=== PATIENT | male | born 1975 | race Hispanic/Latino ===

== ENCOUNTER 2018-12-31 19:17 | Emergency (ER) | payer OTHER ==
[2018-12-31] MEDS ORDERED: NA CHLORIDE 0.9% 1,000 ML ONE (20:20)
[2018-12-31 20:24] LABS: Absolute Lymphocytes (CBC) 0.7 K/uL (0.7-4.9); Absolute Monocytes 0.6 K/uL (0.1-1.3); Absolute Neutrophil 3.4 K/uL (1.8-8.0); Basophils % 0.3 % (0-1.3); Eosinophils % 0.5 % (0-4.4); Hematocrit 40.7 % (39.6-49.0); Lymphocytes % 14.6 % (15.3-44.8); MPV 8.8 fL (7.6-11.3); Monocytes % 12.8 % (3.3-12.3); RBC Red Blood Cell Count 4.74 M/uL (4.33-5.43)
[2018-12-31 20:42] LABS: Albumin 3.9 g/dL (3.4-5.0); Bilirubin Total 0.2 mg/dL (0.2-1.0); Potassium 3.7 mmol/L (3.5-5.1); Protein, Total 7.3 g/dL (6.4-8.2)
[2018-12-31] MEDS ORDERED: ACETAMINOPHEN 500 MG TAB ONE (20:53)
--- NOTE | 2018-12-31 21:18 | EDPHYS ---
Physician Documentation [facility] Name: Hank Crane Age: 43 yrs Sex: Male : 1975 Arrival Date: 12/31/2018 Time: 19:19 Bed 28 Private MD: ED Physician Daniel Carpenter HPI: 12/31 19:52 This 43 yrs old Male presents to ER via Ambulatory with complaints of Cough, jmm Dizziness, Fever. 19:52 The patient or guardian reports cough. Onset: The symptoms/episode began/occurred jmm gradually, 1 day(s) ago. This is a 43 year old male with no chronic medical conditions that presents to the ED with complaints of fever, cough, congestion, headache, beginning 1 day ago. patient states he was diagnosed with influenza. Patient is currently on tamiflu. Patient states his developed symptoms today. . Historical: - Allergies: 19:49 No Known Allergies; rv - PMHx: 19:49 None; rv - PSHx: 19:49 Appendectomy; rv - Immunization history:: Adult Immunizations up to date. - Social history:: Smoking status: Patient/guardian denies using tobacco, the patient reports quitting approximately 10 years ago. - Ebola Screening: : Patient negative for fever greater than or equal to 101.5 degrees Fahrenheit, and additional compatible Ebola Virus Disease symptoms Patient denies exposure to infectious person Patient denies travel to an Ebola-affected area in the 21 days before illness onset. ROS: 19:52 Eyes: Negative for injury, pain, redness, and discharge, ENT: Negative for injury, jmm pain, and discharge, Cardiovascular: Negative for chest pain, palpitations, and edema. 19:52 Constitutional: Positive for body aches, fever. 19:52 Respiratory: Positive for cough. 19:52 Neuro: Positive for headache. 19:52 All other systems are negative. Exam: 19:52 Constitutional: This is a well developed, well nourished patient who is awake, alert, jmm and in no acute distress. Head/Face: atraumatic. Eyes: EOMI, no conjunctival erythema appreciated ENT: Moist Mucus Membranes Neck: Trachea midline, Supple Cardiovascular: Regular rate and rhythm. No edema appreciated Respiratory: Normal respirations, no respiratory distress appreciated Abdomen/GI: Non distended, soft Back: Normal ROM Skin: General appearance color normal MS/ Extremity: Moves all extremities, no obvious deformities appreciated, no edema noted to the lower extremities Neuro: Awake and alert, normal gait Psych: Behavior is normal, Mood is normal, Patient is cooperative and pleasant 19:52 Respiratory: the patient does not display signs of respiratory distress, Respirations: normal, Breath sounds: are clear throughout. 19:52 Psych: Behavior/mood is pleasant, cooperative. Vital Signs: 19:49 BP 137 / 93; Pulse 91; Resp 22; Temp 99.4; Pulse Ox 100% on R/A; Weight 102.06 kg (R); rv 21:37 BP 147 / 93; Pulse 87; Resp 17; Pulse Ox 99% on R/A; rv MDM: 19:52 Patient medically screened. [facility] 21:16 Data reviewed: vital signs, nurses notes. Counseling: I had a detailed discussion with [facility] the patient and/or guardian regarding: the historical points, exam findings, and any diagnostic results supporting the discharge/admit diagnosis, lab results, the need for outpatient follow up, to return to the emergency department if symptoms worsen or persist or if there are any questions or concerns that arise at home. ED course: Patient is alert and non toxic in appearance in the ED. Patient's neck is supple. patient advised to follow up with pcp. patient given return precaution. no signs resp distress in the ED. . 12/31 19:56 Order name: CBC with Diff; Complete Time: 20:33 [facility] 12/31 19:56 Order name: CMP; Complete Time: 20:54 [facility] 12/31 19:56 Order name: Flu; Complete Time: 21:16 [facility] 12/31 19:56 Order name: Saline Lock; Complete Time: 20:45 [facility] Administered Medications: 20:15 Drug: NS 0.9% 1000 ml Route: IV; Rate: 1 bolus; Site: left antecubital; rv 20:40 Drug: Tylenol 1000 mg Route: PO; ca1 Disposition: 01/01 06:20 Co-signature as Attending Physician, aDniel Carpenter MD I agree with the assessment and tw4 plan of care. Disposition: 12/31/18 21:18 Discharged to Home. Impression: Influenza due to certain identified influenza viruses. - Condition is Stable. - Discharge Instructions: Influenza, Adult. - Medication Reconciliation Form, Thank You Letter, Antibiotic Education, Prescription Opioid Use form. - Follow up: Private Physician; When: 2 - 3 days; Reason: Recheck today's complaints, Continuance of care, Re-evaluation by your physician. Signatures: Dispatcher [employer] EDMiguel Ángel Aquino PA PA jmm Wadley, Terrence, MD MD tw4 Aditya Bergeron, TENISHA RN rv Leda Oviedo RN RN ca1 Corrections: (The following items were deleted from the chart) 12/31 21:38 21:18 12/31/2018 21:18 Discharged to Home. Impression: Influenza due to certain rv identified influenza viruses. Condition is Stable. Forms are Medication Reconciliation Form, Thank You Letter, Antibiotic Education, Prescription Opioid Use. Follow up: Private Physician; When: 2 - 3 days; Reason: Recheck today's complaints, Continuance of care, Re-evaluation by your physician. nicholas
--- NOTE | 2018-12-31 21:18 | ER ---
Nurse's Notes [facility] Name: Hank Crane Age: 43 yrs Sex: Male : 1975 Arrival Date: 12/31/2018 Time: 19:19 Bed 28 Private MD: Diagnosis: Influenza due to certain identified influenza viruses Presentation: 12/31 19:46 Presenting complaint: Patient states: I HAVE BEEN COUGHING A LOT THIS PAST FEW DAYS. rv YESTERDAY COUGH GOR WORSE, WENT TO URGENT CARE. DID THE FLU SWAB, AND IT WAS NEGATIVE. I WAS DISCHARGE AND TREATED FOR FLU.". Transition of care: patient was not received from another setting of care. Onset of symptoms was December 30, 2018 at 08:00. Risk Assessment: Do you want to hurt yourself or someone else? Patient reports no desire to harm self or others. Initial Sepsis Screen: Does the patient meet any 2 criteria? No. Patient's initial sepsis screen is negative. Does the patient have a suspected source of infection? No. Patient's initial sepsis screen is negative. Care prior to arrival: None. 19:46 Method Of Arrival: Ambulatory rv 19:46 Acuity: YASHIRA 3 rv Triage Assessment: 19:49 General: Appears in no apparent distress. comfortable, Behavior is calm, cooperative. rv Pain: Complains of pain in back and chest. Historical: - Allergies: 19:49 No Known Allergies; rv - PMHx: 19:49 None; rv - PSHx: 19:49 Appendectomy; rv - Immunization history:: Adult Immunizations up to date. - Social history:: Smoking status: Patient/guardian denies using tobacco, the patient reports quitting approximately 10 years ago. - Ebola Screening: : Patient negative for fever greater than or equal to 101.5 degrees Fahrenheit, and additional compatible Ebola Virus Disease symptoms Patient denies exposure to infectious person Patient denies travel to an Ebola-affected area in the 21 days before illness onset. Screenin:53 Abuse screen: Denies threats or abuse. Denies injuries from another. Nutritional rv screening: No deficits noted. Tuberculosis screening: No symptoms or risk factors identified. Fall Risk None identified. Assessment: 19:52 General: Appears in no apparent distress. comfortable, Behavior is calm, cooperative. rv Pain: Complains of pain in back and chest. Neuro: Level of Consciousness is awake, alert, obeys commands, Oriented to person, place, time, situation. Cardiovascular: Capillary refill < 3 seconds. Respiratory: Airway is patent. GI: No signs and/or symptoms were reported involving the gastrointestinal system. : No signs and/or symptoms were reported regarding the genitourinary system. EENT: No signs and/or symptoms were reported regarding the EENT system. Derm: Skin is intact. Musculoskeletal: No signs and/or symptoms reported regarding the musculoskeletal system. Vital Signs: 19:49 BP 137 / 93; Pulse 91; Resp 22; Temp 99.4; Pulse Ox 100% on R/A; Weight 102.06 kg (R); rv 21:37 BP 147 / 93; Pulse 87; Resp 17; Pulse Ox 99% on R/A; rv ED Course: 19:19 Patient arrived in ED. am2 19:41 Miguel Ángel Coyne PA is PHCP. nicholas 19:41 Daniel Carpenter MD is Attending Physician. [facility] 19:48 Triage completed. rv 19:53 Patient has correct armband on for positive identification. Bed in low position. Call rv light in reach. Side rails up X 1. Pulse ox on. NIBP on. 19:53 Patient placed in an exam room, on a stretcher, on pulse oximetry, Patient notified of rv wait time. 20:15 Inserted saline lock: 20 gauge in left antecubital area, using aseptic technique. Blood rv collected. 21:37 No provider procedures requiring assistance completed. IV discontinued, bleeding rv controlled, No redness/swelling at site. Pressure dressing applied. Administered Medications: 20:15 Drug: NS 0.9% 1000 ml Route: IV; Rate: 1 bolus; Site: left antecubital; rv 20:40 Drug: Tylenol 1000 mg Route: PO; ca1 Outcome: 21:18 Discharge ordered by . [facility] 21:38 Discharged to home ambulatory. rv 21:38 Condition: good 21:38 Discharge instructions given to patient, family, Instructed on discharge instructions, follow up and referral plans. Demonstrated understanding of instructions, follow-up care. 21:38 Patient left the ED. rv Signatures: Miguel Ángel Coyne PA PA Katelynn Glass am2 Aditya Bergeron RN RN rv Leda Oviedo RN RN ca1
== END 2018-12-31 21:38 | disposition home or self-care (01) ==
LOC: ER 19:17
DX: J10.1 Influenza due to other identified influenza virus with other respiratory manifestations (principal); Z87.891 Personal history of nicotine dependence
CPT/HCPCS: 36415; 80053; 85025; 87804; 99284; J7030

== ENCOUNTER 2025-08-03 10:05 | Emergency (ER) | payer OTHER ==
--- OUTSIDE RECORDS SUMMARY | 2025-08-03 10:08 | XMS REPORT | Continuity of Care Document ---
Author Name Unknown Address [address] [place] [address] [facility] Address [address] [place] [address] Care Team Providers Care Central Office Mechanic Name Role Phone Pcp, Patient Does Not Have A Primary Care Physic holger Colt Holm Attending Clinician Unavailable Lucretia Soto Attending Clinician Unavailable Doctor Unassigned, [place] Attending Clinician U Judith Rice Attending Clinician UNKNOWN, ATTENDING Attending Clinician Unavailab le Payers Payer Name Policy Type Policy Number Effective Date Expirati on Date Source [facility] [id number] 2020 00:00:00 [place] [address] [id number] 2020 00:00:00 Common [facility] Problems Condition Name Condition Details Condition Category Status Onset Date Resolution Date Last Treatment Date Treating Clinician Comments Source Family history of diabetes mellitus Family history of diabetes mellitus Active Diagnosis 10/25/2015 Gurmeet Sanchez Diagnosis Active 2015-10-25 03:10:54 Yeimy Bello Post herpetic neuralgia Post herpetic neuralgia Active Diagnosis 10/25/2015 Gurmeet Sanchez Diagnosis Active 2015-10-25 03:10:54 Yeimy Bello [id number] Sinus problem Problem Active [facility] [id number] Depression with anxiety Problem Active [facility] [id number] Encounter for wellness examinatio n in adult Problem Active [facility] [id number] Puncture wound without foreign body of left hand, subsequent encounter Problem Active [facility] [id number] Local infection of the skin and subcutaneo us tissue, unspecifie d Problem Active [facility] [id number] Elbow tendinitis Problem Active [facility] [id number] Abnormal liver function test Problem Active [facility] [id number] Dog bite, subsequent encounter Problem Active [facility] No known active problems No known active problems Disease General acute hospital Shingles Shingles Active Diagnosis 10/25/2015 Gurmeet Sanchez Diagnosis Active 2015-10-25 03:10:54 Yeimy Bello Allergies, Adverse Reactions, Alerts Allergy Name Allergy Type Status Severity Reaction(s) Onset Date Inactive Date Treating Clinician Comments Source NO KNOWN ALLERGIE S Drug Class Active [facility] acute hospital Social History Social Habit Start Date Stop Date Quantity Comments Source History of Tobacco Use [facility] Sex Assigned At [facility] Exposure to SARS-CoV-2 (event) Not sure [facility] TobaccoUse: 2015-10-24 00:00:00 2015-10-24 00:00:00 Caleb Bello Smoking Status Start Date Stop Date Source Never Smoker [facility] Unknown if ever smoked [facility] Medications Ordered Medication Name Filled Medication Name Start Date Stop Date Current Medication? Ordering Clinician Indication Dosage Frequency Signature (SIG) Comments Components Source Bactrim DS 800-160 MG Bactrim DS 800-160 MG 07-09 00:00: 00 07-19 00:00 :00 No 1{table t} BID Bactrim DS 800-160 MG Augmentin 500-125 MG Augmentin 500-125 MG 07-09 00:00: 00 07-12 00:00 :00 No 1{table t} Augmentin 500-125 MG ibuprofen (IBU) tablet 600 mg 07-08 01:45: 00 07-08 00:46 :00 No 600mg 600 mg, Oral, ONCE, 1 dose, 07/07/21 at 2044, ANNEL General acute hospital amoxicillin -clavulanat e (AUGMENTIN) 875-125 mg per tablet 1 tablet 07-08 01:45: 00 07-08 13:44 :00 No 1{tbl} 1 tablet, Oral, ONCE, 1 dose, 07/07/21 at 2044, Routine
Reason for Anti-Infec tive: Documented Infection< br>Documen radha Infection Site: Skin / Soft Tissue
Duration of Therapy: 7 days [facility] acute hospital traMADoL 50 mg tablet 07-07 00:00: 00 Yes [id number] 50mg Take 1 tablet by mouth every 6 (six) hours as needed for Pain (scale 7-10). Indication s: acute pain General acute hospital amoxicillin -clavulanat e 875-125 mg per tablet 07-07 00:00: 00 07-15 04:59 :00 No [id number] 1{tbl} Take 1 tablet by mouth every 12 (twelve) hours for 7 days. General acute hospital Valacyclovi r HCl 2014-11 00:00: 00 Yes Milka Edmond 1 tablet Yeimy Bello Multivitami n/Minerals Multivitami n/Minerals Yes Lucretia Soto not defined [facility] M21-Znlrlu U46-Nujoql Yes Lucretia Soto as directed [facility] Dunfermline III EPA+DHA Dunfermline III EPA+DHA Yes Lucretia Soto 1 capsule [facility] Naproxen Naproxen Yes Lucretia Soto not defined [facility] Naproxen Naproxen No Naproxen S97-Ywumjv 1 MG O49-Anmjay 1 MG No U89-Asnkte 1 MG Bactrim DS 800-160 MG Bactrim DS 800-160 MG No 1{table t} BID Bactrim DS 800-160 MG Amoxicillin 875 MG Amoxicillin 875 MG No 1{capsu le} BID Amoxicilli n 875 MG Dunfermline III EPA+DHA 1000 MG Dunfermline III EPA+DHA 1000 MG No 1{capsu le} QD Dunfermline III EPA+DHA 1000 MG traMADol HCl 50 MG traMADol HCl 50 MG No 1{table t_as_ne eded} QID traMADol HCl 50 MG Dunfermline III EPA+DHA 1000 MG Dunfermline III EPA+DHA 1000 MG No 1{capsu le} QD Dunfermline III EPA+DHA 1000 MG Amoxicillin 875 MG Amoxicillin 875 MG No 1{capsu le} BID Amoxicilli n 875 MG traMADol HCl 50 MG traMADol HCl 50 MG No 1{table t_as_ne eded} QID traMADol HCl 50 MG I24-Vjxqrl 1 MG J52-Qiqphb 1 MG No N94-Dwdmis 1 MG Naproxen Naproxen No Naproxen Vital Signs Vital Name Observation Time Observation Value Comments [facility] height 2021-10-15 15:40:00 75 [in_i] Commo n [facility] weight 2021-10-15 15:40:00 197.8 [lb_av] Co [facility] temperature 2021-10-15 15:40:00 97.0 [degF] Com [facility] bmi 2021-10-15 15:40:00 24.72 kg/m2 Comm on [facility] oximetry 2021-10-15 15:40:00 99 % Commo n [facility] respiratory rate 2021-10-15 15:40:00 18 /min Common [facility] blood pressure systolic 2021-10-15 15:40:00 122 mm[Hg] Common [facility] blood pressure diastolic 2021-10-15 15:40:00 70 mm[Hg] Common [facility] height 2021-08-03 14:00:00 75 [in_i] Commo n [facility] weight 2021-08-03 14:00:00 199.6 [lb_av] Co [facility] temperature 2021-08-03 14:00:00 97.6 [degF] Com [facility] bmi 2021-08-03 14:00:00 24.95 kg/m2 Comm on [facility] oximetry 2021-08-03 14:00:00 96 % Commo n [facility] respiratory rate 2021-08-03 14:00:00 16 /min [facility] blood pressure systolic 2021-08-03 14:00:00 129 mm[Hg] Common [facility] blood pressure diastolic 2021-08-03 14:00:00 60 mm[Hg] [facility] height 2021-07-16 10:30:00 75 [in_i] Commo n [facility] weight 2021-07-16 10:30:00 200.4 [lb_av] Co [facility] temperature 2021-07-16 10:30:00 96.7 [degF] Com [facility] bmi 2021-07-16 10:30:00 25.05 kg/m2 Comm on [facility] oximetry 2021-07-16 10:30:00 97 % Commo n [facility] respiratory rate 2021-07-16 10:30:00 18 /min [facility] blood pressure systolic 2021-07-16 10:30:00 120 mm[Hg] Common [facility] blood pressure diastolic 2021-07-16 10:30:00 80 mm[Hg] Common [facility] height 2021-07-09 14:00:00 75 [in_i] Commo n [facility] weight 2021-07-09 14:00:00 203.4 [lb_av] Co [facility] temperature 2021-07-09 14:00:00 97.0 [degF] Com [facility] bmi 2021-07-09 14:00:00 25.42 kg/m2 Comm on [facility] oximetry 2021-07-09 14:00:00 99 % Commo n [facility] respiratory rate 2021-07-09 14:00:00 18 /min Common [facility] blood pressure systolic 2021-07-09 14:00:00 130 mm[Hg] [facility] blood pressure diastolic 2021-07-09 14:00:00 70 mm[Hg] [facility] Systolic blood pressure 2021-07-08 00:18:00 137 mm[Hg] [facility] Diastolic blood pressure 2021-07-08 00:18:00 93 mm[Hg] [facility] Heart rate 2021-07-08 00:18:00 64 /min [facility] Body temperature 2021-07-08 00:18:00 36.83 Bridgett [facility] Respiratory rate 2021-07-08 00:18:00 16 /min [facility] Body height 2021-07-08 00:18:00 190.5 cm [facility] Body weight 2021-07-08 00:18:00 88.451 kg [facility] BMI 2021-07-08 00:18:00 24.37 kg/m2 [facility] Oxygen saturation in Arterial blood by Pulse oximetry 2021-07-08 00:18:00 97 /min [facility] Heart Rate 2015-10-24 15:30:00 Zia Bello Diastolic (mm Hg) 2015-10-24 15:30:00 Caleb Bello Systolic (mm Hg) 2015-10-24 15:30:00 [facility] Weight 2015-10-24 15:30:00 Memor iajosé miguel Bello Height 2015-10-24 15:30:00 Zia Bello Temperature Oral (F) 2015-10-24 15:30:00 97.9 F Caleb Bello Procedures Procedure Date / Time Performed Performing Clinicia n Source EXTERNAL PROVIDER RECORDS 2021-07-24 05:01:00 Doctor Unassigned, [place] [facility] NOTICE OF PRIVACY PRACTICES 2021-07-08 00:09:29 Doctor Unassigned, [place] [facility] CONSENT/REFUSAL FOR DIAGNOSIS AND TREATMENT 2021-07-08 00:09:14 Doctor Unassigned, [place] [facility] Encounters Start Date/Time End Date/Time Encounter Type Admission Type Attending [facility] Facility Care Department Encounter ID Source 2021-12-12 14:04:10 Outpatient Colt Holm STLMLC STLMLC [id number] [facility] 2021-12-12 13:50:47 Outpatient Holm Avnemimi STLMLC STLMLC [id number] [facility] 2021-12-12 13:50:34 Outpatient Holm Avnee STLMLC STLMLC [id number] [facility] 2021-12-12 13:47:00 Outpatient Gravesnemimi STLMLC STLMLC [id number] [facility] 2021-12-12 13:43:15 Outpatient Gravesnemimi STLMLC STLMLC [id number] [facility] 2021-12-12 13:42:33 Outpatient Gravesnee STLMLC STLMLC [id number] [facility] 2021-12-12 13:41:20 Outpatient Gravesnee STLMLC STLMLC [id number] [facility] 2021-12-12 11:57:09 Outpatient STLMLC STLMLC [id number] [facility] 2021-12-12 11:23:19 Outpatient Lucretia Soto STLMLC STLC [id number] [facility] 2021-09-17 17:10:26 Emergency [facility] [id number] General acute hospital 2021-10-25 00:00:00 2021-10-25 00:00:00 (TEL) STLMLC STLMLC [id number] [facility] 2021-10-15 00:00:00 2021-10-15 00:00:00 PREV VISIT EST AGE 40-64 STLMLC STLMLC [id number] [facility] 2021-08-03 00:00:00 2021-08-03 00:00:00 OFFICE VISIT EST PT LEVEL 3 STLMLC STLMLC [id number] [facility] 2021-07-24 00:00:00 2021-07-24 00:00:00 Orders Only Doctor Unassigned, [place] [facility] [id number] General acute hospital 2021-07-17 00:00:00 2021-07-17 00:00:00 (TEL) STLMLC STLMLC [id number] [facility] 2021-07-16 00:00:00 2021-07-16 00:00:00 OFFICE VISIT EST PT LEVEL 3 STLMLC STLMLC [id number] [facility] 2021-07-09 00:00:00 2021-07-09 00:00:00 OFFICE VISIT EST PT LEVEL 3 STLMLC STLMLC [id number] [facility] 2021-07-09 00:00:00 2021-07-09 00:00:00 (TEL) STLMLC STLMLC [id number] [facility] 2021-07-07 19:23:00 2021-07-07 20:36:00 Emergency Judith Rocha [facility] [id number] General acute hospital 2021-07-07 19:00:00 2021-07-07 19:00:00 Outpatient R UNKNOWN, ATTENDING [facility] [id number] General acute hospital 2020-04-14 09:40:00 2020-04-14 09:40:[address] [facility] [id number] [facility] 2019-10-12 13:20:00 2019-10-12 13:20:00 Outpatient [facility] [id number] [facility] 2019-10-12 09:16:00 2019-10-12 09:16:00 Outpatient [facility] [id number] [facility] 2019-09-15 15:00:00 2019-09-15 15:00:00 Outpatient [facility] [id number] [facility]
[2025-08-03] MEDS ORDERED: HYDROCODONE/APAP 5/325 MG TAB ONE (10:14)
--- NOTE | 2025-08-03 10:55 | ER ---
Nurse's Notes [facility] Name: Hank Crane Age: 50 yrs Sex: Male : 1975 Arrival Date: 08/03/2025 Time: 10:05 Bed 6 Private MD: Diagnosis: Left shoulder strain Presentation: 08/03 10:08 Chief complaint: EMS states: MECHANICAL FALL AT WORK WITH LEFT SHOULDER PAIN AFTER bp HYPER-EXTENSION. Coronavirus screen: At this time, the client does not indicate any symptoms associated with coronavirus-19. Ebola Screen: No symptoms or risks identified at this time. Initial Sepsis Screen: Does the patient meet any 2 criteria? No. Patient's initial sepsis screen is negative. Does the patient have a suspected source of infection? No. Patient's initial sepsis screen is negative. Risk Assessment: Do you want to hurt yourself or someone else? Patient reports no desire to harm self or others. Onset of symptoms was August 03, 2025 at 09:30. 10:08 Method Of Arrival: EMS: [facility] bp 10:08 Acuity: YASHIRA 3 bp Triage Assessment: 10:09 General: Appears in no apparent distress. uncomfortable, Behavior is appropriate for bp age. Pain: Complains of pain in anterior aspect of left shoulder. EENT: No deficits noted. Neuro: No deficits noted. Cardiovascular: No deficits noted. Respiratory: No deficits noted. GI: No signs and/or symptoms were reported involving the gastrointestinal system. : No signs and/or symptoms were reported regarding the genitourinary system. Derm: No deficits noted. Musculoskeletal: Circulation, motion, and sensation intact. Injury Description: Deformity sustained to anterior aspect of left shoulder. Historical: - Allergies: 10:09 No Known Allergies; bp - Home Meds: 10:09 sertraline oral [Active]; Alprazolam Oral [Active]; Buspirone Oral [Active]; bp - PMHx: 10:09 Anxiety; Depressive disorder; bp - Immunization history:: Adult Immunizations up to date. - Infectious Disease History:: Denies. - Social history:: Smoking status: Patient denies any tobacco usage or history of. Screenin:11 [facility] ED Fall Risk Assessment (Adult) History of falling in the last 3 months, bp including since admission Yes- single mechanical fall (1 pt) Confusion or Disorientation No (0 pts) Intoxicated or Sedated No (0 pts) Impaired Gait No (0 pts) Mobility Assist Device Used No (0 pt) Altered Elimination No (0 pt) Score/Fall Risk Level 0 - 2 = Low Risk Oriented to surroundings. Abuse screen: Denies threats or abuse. Denies injuries from another. Nutritional screening: No deficits noted. Tuberculosis screening: No symptoms or risk factors identified. Assessment: 10:11 General: SEE TRIAGE NOTE. bp Vital Signs: 10:08 BP 142 / 90; Pulse 95; Resp 16; Temp 98; Pulse Ox 97% ; bp 11:33 BP 139 / 85; Pulse 89; Resp 16; Pulse Ox 97% ; bp ED Course: 10:07 Patient arrived in ED. bp 10:07 Kerwin Romero MD is Attending Physician. sp3 10:09 Triage completed. bp 10:09 Arm band placed on. bp 10:11 Patient has correct armband on for positive identification. bp 10:12 Jack Burdick, TENISHA is Primary Nurse. bp 10:50 Shoulder Left (2 View) XRAY In Process Unspecified. EDMS 10:50 Clavicle Left XRAY In Process Unspecified. EDMS 10:54 Maynor Jose MD is Referral Physician. sp3 11:34 No provider procedures requiring assistance completed. Patient did not have IV access bp during this emergency room visit. Sling applied to left arm. Administered Medications: 10:16 Drug: HYDROcodone-acetaminophen PO 5 mg-325 mg 2 tabs PO once Route: PO; bp 11:02 Follow up: Response: No adverse reaction bp Medication: 10:11 VIS not applicable for this client. bp Outcome: 10:54 Discharge ordered by . sp3 11:34 Discharged to home ambulatory, with family, bp 11:34 Condition: stable 11:34 Discharge instructions given to patient, Instructed on discharge instructions, follow up and referral plans. medication usage, Demonstrated understanding of instructions, follow-up care, medications, Prescriptions given X 1, 11:34 Patient left the ED. bp Signatures: Dispatcher [employer] EDJack Whaley, RN RN bp Kerwin Romero MD MD sp3
--- NOTE | 2025-08-03 10:55 | EDPHYS ---
Physician Documentation [facility] Name: Hank Crane Age: 50 yrs Sex: Male : 1975 Arrival Date: 08/03/2025 Time: 10:05 Bed 6 Private MD: ED Physician Kerwin Romero HPI: 08/03 10:48 This 50 yrs old Male presents to ER via EMS with complaints of Shoulder Pain. sp3 10:48 50-year-old male with history of anxiety and depression presents to the ED from [place] for sp3 left shoulder injury in an abduction style pull occurrence that her happened when he slipped and fell. EMS reports possible deformity but none upon arrival, but none here. Patient denies any other injury including head injury. ROS otherwise negative.. Historical: - Allergies: 10:09 No Known Allergies; bp - Home Meds: 10:09 sertraline oral [Active]; Alprazolam Oral [Active]; Buspirone Oral [Active]; bp - PMHx: 10:09 Anxiety; Depressive disorder; bp - Immunization history:: Adult Immunizations up to date. - Infectious Disease History:: Denies. - Social history:: Smoking status: Patient denies any tobacco usage or history of. ROS: 10:51 Constitutional: Negative for fever, chills, and weight loss, Eyes: Negative for injury, sp3 pain, redness, and discharge, ENT: Negative for injury, pain, and discharge, Neck: Negative for injury, pain, and swelling, Cardiovascular: Negative for chest pain, palpitations, and edema, Respiratory: Negative for shortness of breath, cough, wheezing, and pleuritic chest pain, Abdomen/GI: Negative for abdominal pain, nausea, vomiting, diarrhea, and constipation, Back: Negative for injury and pain, Skin: Negative for injury, rash, and discoloration, Neuro: Negative for headache, weakness, numbness, tingling, and seizure, Psych: Negative for depression, anxiety, suicide ideation, homicidal ideation, and hallucinations, Allergy/Immunology: Negative for hives, rash, and allergies, Endocrine: Negative for neck swelling, polydipsia, polyuria, polyphagia, and marked weight changes, Hematologic/Lymphatic: Negative for swollen nodes, abnormal bleeding, and unusual bruising, 10:51 All other systems are negative, Exam: 10:51 Constitutional: This is a well developed, well nourished patient who is awake, alert, sp3 and in no acute distress. Head/Face: Normocephalic, atraumatic. Neck: Trachea midline, no thyromegaly or masses palpated, and no cervical lymphadenopathy. Supple, full range of motion without nuchal rigidity, or vertebral point tenderness. No Meningismus. Chest/axilla: Normal chest wall appearance and motion. Nontender with no deformity. No lesions are appreciated. Cardiovascular: Regular rate and rhythm with a normal S1 and S2. No gallops, murmurs, or rubs. Normal PMI, no JVD. No pulse deficits. Respiratory: Lungs have equal breath sounds bilaterally, clear to auscultation and percussion. No rales, rhonchi or wheezes noted. No increased work of breathing, no retractions or nasal flaring. Abdomen/GI: Soft, non-tender, with normal bowel sounds. No distension or tympany. No guarding or rebound. No evidence of tenderness throughout. Back: No spinal tenderness. No costovertebral tenderness. Full range of motion. Skin: Warm, dry with normal turgor. Normal color with no rashes, no lesions, and no evidence of cellulitis. Neuro: Awake and alert, GCS 15, oriented to person, place, time, and situation. Cranial nerves II-XII grossly intact. Motor strength 5/5 in all extremities. Sensory grossly intact. Cerebellar exam normal. Normal gait. Psych: Awake, alert, with orientation to person, place and time. Behavior, mood, and affect are within normal limits. 10:51 Musculoskeletal/extremity: Pain on left shoulder to palpation on the anterior portion. No obvious deformity noted. Distal neurovascular exam is normal in the left upper extremity.. Vital Signs: 10:08 BP 142 / 90; Pulse 95; Resp 16; Temp 98; Pulse Ox 97% ; bp 11:33 BP 139 / 85; Pulse 89; Resp 16; Pulse Ox 97% ; bp MDM: 10:09 Medical Screening Exam initiated sp3 10:52 Data reviewed: vital signs, nurses notes, radiologic studies. ED course: Left shoulder sp3 injury consisting of sprain versus strain versus fracture. X-ray demonstrates no fracture. Will place in sling and follow-up with orthopedics as needed. Pain medication as needed.. 08/03 10:09 Order name: Shoulder Left (2 View) XRAY; Complete Time: 11:34 sp3 08/03 10:09 Order name: Clavicle Left XRAY; Complete Time: 11:34 sp3 08/03 10:55 Order name: Sling; Complete Time: 11:33 sp3 Administered Medications: 10:16 Drug: HYDROcodone-acetaminophen PO 5 mg-325 mg 2 tabs PO once Route: PO; bp 11:02 Follow up: Response: No adverse reaction bp Disposition Summary: 08/03/25 10:54 Discharge Ordered Notes: Location: Home sp3 Condition: Stable sp3 Diagnosis - Left shoulder strain sp3 Followup: sp3 - With: Maynor Jose MD - When: Upon discharge from the Emergency Department - Reason: Recheck today's complaints Discharge Instructions: - Discharge Summary Sheet sp3 - Shoulder Sprain sp3 - Arthroscopic Surgery for Shoulder Instability sp3 Forms: - Medication Reconciliation Form sp3 - Antibiotic Education sp3 - Prescription Opioid Use sp3 - Patient Portal Instructions sp3 - Leadership Thank You Letter sp3 Prescriptions: - Tramadol 50 mg Oral Tablet - take 1 tablet ORAL route every 8 hours as needed; 12 tablet; Refills: 0, sp3 Product Selection Permitted Signatures: Dispatcher [employer] Jack Ramsey RN RN bp Patel, Setul, MD MD sp3
--- NOTE | 2025-08-03 11:32 | RAD REPORT ---
EXAMINATION: XR LEFT CLAVICLE CLINICAL INDICATION: Male, 50 years old. trauma TECHNIQUE: 2 view radiograph of the left clavicle were obtained. COMPARISON: No prior exam. FINDINGS: No evidence of fracture or dislocation. Normal alignment. No evidence of arthropathy or oth er focal bone lesion. Soft tissues are unremarkable. IMPRESSION: No acute or significant abnormalities.
--- NOTE | 2025-08-03 11:32 | RAD REPORT ---
EXAMINATION: XR LEFT SHOULDER CLINICAL INDICATION: Male, 50 years old. Pain;Swelling TECHNIQUE: Internal and external AP view radiograph of the left shoulder were obtained. COMPARISON: No prior exam. FINDINGS: No evidence of fracture or dislocation. Normal alignment. No evidence of arthropathy or oth er focal bone lesion. Soft tissues are unremarkable. IMPRESSION: No acute or significant abnormalities.
[2025-08-03 11:39] VITALS: TEMP 98; O2SAT 97
[2025-08-03 11:40] VITALS: BP 139/85
== END 2025-08-03 11:34 | disposition home or self-care (01) ==
LOC: ER 10:05
DX: S46.912A Strain of unspecified muscle, fascia and tendon at shoulder and upper arm level, left arm, initial encounter (principal); W01.0XXA Fall on same level from slipping, tripping and stumbling without subsequent striking against object, initial encounter
CPT/HCPCS: 99284